=== PATIENT | female | born 1950 | race Hispanic/Latino ===

== ENCOUNTER 2018-12-05 17:07 | Inpatient (IN) | payer OTHER | END 2018-12-09 13:33 | disposition home or self-care (01) | LOC: EDH 17:07 → EDHIP 21:40 → 4BH 22:49 | DX: K52.9 Noninfective gastroenteritis and colitis, unspecified (principal); E46 Unspecified protein-calorie malnutrition; E86.0 Dehydration; M06.9 Rheumatoid arthritis, unspecified; G89.29 Other chronic pain ==

== ENCOUNTER → 2022-08-12 | Outpatient (CLI) | payer OTHER ==
[~2022-08-12] MED LIST: APIX2.5T PO; ASCO500W7 PO; ASPI-1443 PO; CALC-1158 PO; FERR324T10 PO; HYDR-4457 PO; POLY17PO52 PO; PRAV40TA3 PO; TOFA10TA PO
== END | disposition home or self-care (01) ==
LOC: RAH 08:58
PROVIDERS: ATTEND Family Medicine
DX: R10.31 Right lower quadrant pain (principal)
CPT/HCPCS: 74176

== ENCOUNTER → 2022-10-25 | Outpatient (CLI) | payer OTHER | END | disposition home or self-care (01) | LOC: RAH 10:35 | PROVIDERS: ATTEND Internal Medicine Gastroenterology | DX: K76.0 Fatty (change of) liver, not elsewhere classified (principal); J90 Pleural effusion, not elsewhere classified; R11.0 Nausea; R10.13 Epigastric pain; R14.0 Abdominal distension (gaseous); R14.2 Eructation | CPT/HCPCS: 78264; 76700; A9541 ==